=== PATIENT | female | born 1965 | race Caucasian/White ===

== ENCOUNTER → 2020-04-03 09:47 | Outpatient (BNVA) | payer MEDICAID, SELFPAY | PROVIDERS: PCP Student in an Organized Health Care Education/Training Program; Visit Provider Internal Medicine | DX: L73.2 Hidradenitis suppurativa (principal) | CPT/HCPCS: 99212 ==

== ENCOUNTER 2020-05-12 08:10 | Outpatient (REF) | payer MEDICAID, SELFPAY ==
--- NOTE | 2020-05-12 08:44 | MM_ITS ---
EXAMINATION: MM SCREENING DIGITAL BREAST TOMOSYNTHESIS, BILATERAL CLINICAL INFORMATION: Screening. Asymptomatic. Family history breast cancer, sister. The lifetime risk of breast cancer based on the Tyrer-Cuzick Model is 10%. COMPARISON: Mammography: 01/26/2019, 08/27/2017 TECHNIQUE: Digital breast tomosynthesis is performed in both the craniocaudal and mediolateral oblique views along with computer-aided detection (CAD). Synthesized 2D images are generated from the tomosynthesis. Additional left MLO view is provided. FINDINGS: There are scattered areas of fibroglandular density (ACR BI-RADS breast composition Category b). There are no significant masses, abnormal calcifications, or other abnormalities. The axilla and skin contours are unremarkable. No significant changes. MM/MM tomosynthesis screening BI IMPRESSION: No mammographic evidence of malignancy. ASSESSMENT: BI-RADS 1: Negative RECOMMENDATION: Routine annual mammography screening. This patient's information was entered into a reminder system with a target due date for their next mammogram.
== END 2020-05-12 08:11 | disposition home or self-care (01) ==
LOC: HO.MAMMO 08:10
PROVIDERS: PCP Student in an Organized Health Care Education/Training Program; Visit Provider Student in an Organized Health Care Education/Training Program
DX: Z12.31 Encounter for screening mammogram for malignant neoplasm of breast (principal); L73.2 Hidradenitis suppurativa
CPT/HCPCS: 77063; 77067

== ENCOUNTER 2020-05-16 08:37 | Day surgery (SDC) | payer MEDICAID, SELFPAY ==
[2020-05-11 11:47] VITALS: BMI 36.3
[2020-05-16 09:06] VITALS: BP 116/69; PULSE 84; RESP 16; TEMP 36.3; O2SAT 98
--- NOTE | 2020-05-16 09:19 | HO.ANESPROP2 ---
[facility] Past Medical History Medical History Anxiety Arthritis Constipation Depression Edema of both lower extremities Edema of both lower legs Elevated cholesterol Fatty liver GERD (gastroesophageal reflux disease) Hidradenitis suppurativa History of CVA (cerebrovascular accident) History of Helicobacter pylori infection HTN (hypertension) Insomnia PONV (postoperative nausea and vomiting) Family History Family history of problems with anesthesia: No Surgical History Surgical History History of cholecystectomy History of partial hysterectomy History of tubal ligation Hx of colonoscopy Previous section History of Problems with Anesthesia: Yes (PONV with gall bladder surgery) Social History Social History Alcohol intake: never Smoking Status: Never smoker Advance Directives: No Advance Directives Information Provided: No Advance Directives on File: No Meds Allergies Allergy/AdvReac Type Severity Reaction Status Date / Time No Known Allergies Allergy Verified 05/11/20 11:44 [No Known Allergies*] Home Medications Medication Instructions Recorded Confirmed Type acetaminophen [Arthritis Pain 650 mg PO Q8H PRN 05/10/20 05/12/20 History Relief (acetam)] adalimumab [Humira] 40 mg SUBCUT Q2W 05/10/20 05/12/20 History doxycycline hyclate 100 mg PO BID 05/10/20 05/12/20 History hydrochlorothiazide 25 mg PO DAILY 05/10/20 05/12/20 History methylcellulose (laxative) 500 mg PO BID 05/10/20 05/12/20 History [Citrucel] omeprazole 20 mg PO BID 05/10/20 05/12/20 History sertraline 100 mg PO DAILY 05/10/20 05/12/20 History vitamin E 800 unit PO DAILY 05/10/20 05/12/20 History atorvastatin 10 mg PO BEDTIME 05/11/20 05/12/20 History furosemide [Lasix] 20 mg PO DAILY 05/11/20 05/12/20 History atorvastatin 10 mg tablet 10 mg PO DAILY 05/12/20 05/12/20 History Exam Exam Date and Time: May 16, [id number] Height,Weight and Vital Signs: Height 4 ft 11 in Weight 81.647 kg Last Vital Signs Temp 97.4 F 05/16/20 09:06 Pulse 84 11/17/20 09:06 Resp 16 05/16/20 09:06 BP 116/69 05/16/20 09:06 Pulse Ox 98 05/16/20 09:06 Airway Mallampati Class: II TM Dist: >3cm Neck ROM: Full Partial: Upper Loose/Missing/Broken Teeth: No Heart: RRR Lungs: CTAB Assessment and Plan Assessment Anesthesia Assessment: Anesthesia Plan Discussed and Chart Reviewed Final Anesthetic Review NPO: Yes ASA Class: III Final Preanesthetic Review: No Changes in Pt Med Stat, Meds/Allgs Chart Reviewed, Consent Obtained/Reviewed and Anes Risks/Benef Reviewed Patient Risk: Intermediate Procedure Risk: Low Anesthetic Plan Anesthetic Plan: MAC: Disposition: Standard PACU
[2020-05-16] MEDS: Lactated Ringers 1,000 ML 100 ML IVCONT (09:23)
--- NOTE | 2020-05-16 10:20 | MHC.SHP ---
Pre-Procedural Eval Section B Chief Complaint: Family Hx of Colon Cancer Details of Present Illness: Colon cancer screening, Father had colon cancer only change to Hx started on Atorvastatin Relevant Family History (Specify if Yes): Yes Relevant Social History: None Present Medications: see Short Stay Collaborative assessment Medical History: Significant History (Hx TA, Hepatic Steatosis, GERD) History of Previous Operations: Relevant previous surgery/procedure and date(s) (2014--[facility]; cholecystectomy, C section x 3, partial hysterectomy) Allergies: Allergies Allergy/AdvReac Type Severity Reaction Status Date / Time No Known Allergies Allergy Verified 05/11/20 11:44 [No Known Allergies*] Review of Systems Sugical H&P ROS: Negative: Constitution, Cardiovascular, Respiratory and Gastrointestinal Exam Surgical H&P Exam: Normal: HEENT, Normal: Heart, Normal: Lungs, Normal: Extremities and Normal: Abdomen Plan Diagnosis/Plan: Unchanged Patient has been examined and remains a candidate for the planned procedure YES
[2020-05-16 11:08] VITALS: BP 100/68; PULSE 77; RESP 14; TEMP 36.8; O2SAT 96
[2020-05-16 11:22] VITALS: BP 125/83; PULSE 76; RESP 16; TEMP 36.8; O2SAT 99
--- NOTE | 2020-05-16 11:33 | HO.POSTANES ---
Post Anesthesia Evaluation Post Anesthesia Evaluation Vital Signs: Vital Signs Temp Pulse Resp BP Pulse Ox 05/16/20 11:22 98.3 F 76 16 125/83 99 05/16/20 11:08 98.3 F 77 14 100/68 96 05/16/20 09:06 97.4 F 84 16 116/69 98 Anesthesia: Monitored Mental Status: Awake Pain Control: Satisfactory Hydration: Adequate Anesthesia-Related Issues: No Anes. Related Issues
--- NOTE | 2020-05-16 11:35 | OP_ITS ---
SURGEON: Eve Erazo MD PREOPERATIVE DIAGNOSIS: Colon cancer screening. Father with history of colon cancer. POSTOPERATIVE DIAGNOSIS: Diverticulosis. PROCEDURE PERFORMED: Colonoscopy. ESTIMATED BLOOD LOSS: No blood loss. COMPLICATIONS: No complications. ANESTHESIA: Monitored. ANESTHESIOLOGIST: Evelyn Hope CRNA ASSISTANTS: No assistant accounting manager. SPECIMENS: No specimens. CORROSION TECHNICIAN: Dr. Erazo. CONDITION: Postop, stable. FINDINGS: Digital rectal exam revealed no specific lesion. Video colonoscope was introduced without difficulty. It was navigated into the rectosigmoid area. There were scattered diverticula in this region. Scope advanced through descending, transverse colon, hepatic flexure. There was mild redundancy and floppiness with readjusting the scope. I was able to move forward through ascending colon and into the cecum. Appendiceal orifice was seen. Ileocecal valve was well seen. No mucosal abnormalities were appreciated. Prep was excellent. Diverticula were present also on the right side. Slow rotational views on withdrawing the scope. No additional lesions were seen. Anorectal verge was clear. CURRENT RECOMMENDATIONS: Repeat asymptomatic screening in this patient will continue at 5 years due to the family history. GRAFT OR IMPLANTS: No grafts or implants. Eve Erazo MD MEN/MODL / [id number] MTDD
== END 2020-05-16 12:15 | disposition home or self-care (01) ==
PROVIDERS: PCP Student in an Organized Health Care Education/Training Program; Visit Provider Internal Medicine Gastroenterology
PROC: 0DJD8ZZ Inspection of Lower Intestinal Tract, Via Natural or Artificial Opening Endoscopic (ICD-10-PCS; CPT 45378; principal; 2020-05-16 10:10)
DX: Z12.11 Encounter for screening for malignant neoplasm of colon (principal); Z80.0 Family history of malignant neoplasm of digestive organs; K57.30 Diverticulosis of large intestine without perforation or abscess without bleeding; K21.9 Gastro-esophageal reflux disease without esophagitis; K76.0 Fatty (change of) liver, not elsewhere classified; I10 Essential (primary) hypertension; E78.00 Pure hypercholesterolemia, unspecified; R60.9 Edema, unspecified; Z90.49 Acquired absence of other specified parts of digestive tract; Z79.899 Other long term (current) drug therapy; Z86.73 Personal history of transient ischemic attack (TIA), and cerebral infarction without residual deficits; Z86.19 Personal history of other infectious and parasitic diseases
CPT/HCPCS: 45378

== ENCOUNTER → 2020-05-29 11:43 | Outpatient (BNVA) | payer MEDICAID, SELFPAY | PROVIDERS: PCP Student in an Organized Health Care Education/Training Program; Referring Provider Student in an Organized Health Care Education/Training Program; Visit Provider Nurse Practitioner | DX: Z76.89 Persons encountering health services in other specified circumstances (principal) ==

== ENCOUNTER 2020-06-19 11:22 | Outpatient (REF) | payer MEDICAID, SELFPAY ==
--- NOTE | 2020-06-19 11:39 | US_ITS ---
EXAMINATION: US ABDOMEN LIMITED CLINICAL INFORMATION: Nonalcoholic steatohepatitis COMPARISON: Limited abdominal ultrasound 12/31/2019. Abdominal ultrasound complete 08/11/2019 TECHNIQUE: Real-time imaging of the right upper quadrant abdominal viscera. FINDINGS: PANCREAS: Partially visualized body of the pancreas is unremarkable. LIVER: The liver is normal in size. The liver contour is normal. There is increased liver echogenicity without focal hepatic lesion. There is no intrahepatic biliary duct dilatation seen. GALLBLADDER: Surgically absent. COMMON BILE DUCT: Normal in caliber measuring 0.3 cm in diameter. RIGHT KIDNEY: Normal. No hydronephrosis. No renal calculi or focal parenchymal lesions. The kidney measures 12.0 cm in maximum dimension. FREE FLUID: None. US/US abdomen limited IMPRESSION: Mild hepatic steatosis. No focal lesion seen. Visualized pancreas, gallbladder, CBD and right kidney appears unremarkable.
[2020-06-19 13:12] LABS: Alanine Aminotransferase 30 U/L (0-31); Albumin Level 4.1 g/dL (3.5-5.0); Alkaline Phosphatase 108 U/L (39-117); Aspartate Amino Transferase 22 U/L (5-31); Bilirubin Direct < 0.2 mg/dL (0.0-0.5); Bilirubin Total 0.3 mg/dL (0.0-1.0); Total Protein 7.5 g/dL (6.5-8.0)
[2020-06-20 11:23] LABS: Alpha Fetoprotein 3.6 ng/mL
== END 2020-06-19 11:23 | disposition home or self-care (01) ==
LOC: HO.US 11:22
PROVIDERS: PCP Student in an Organized Health Care Education/Training Program; Visit Provider Nurse Practitioner
DX: K75.81 Nonalcoholic steatohepatitis (NASH) (principal)
CPT/HCPCS: 76705; 80076; 82105

== ENCOUNTER → 2020-08-23 14:31 | Outpatient (BNVA) | payer MEDICAID, SELFPAY | PROVIDERS: PCP Student in an Organized Health Care Education/Training Program; Visit Provider Nurse Practitioner ==

== ENCOUNTER → 2021-02-08 13:46 | Outpatient (BNVA) | payer MEDICAID, SELFPAY | PROVIDERS: PCP Student in an Organized Health Care Education/Training Program; Visit Provider Nurse Practitioner ==

== ENCOUNTER 2021-04-17 16:46 | Outpatient (REF) | payer MEDICAID, SELFPAY ==
--- NOTE | ~2021-04-17 | XR_ITS ---
EXAMINATION: XR CHEST CLINICAL INFORMATION: Cough and wheezing COMPARISON: Previous chest x-ray January 2017 TECHNIQUE: 2 views of the chest were obtained. FINDINGS: No significant abnormality is noted involving the heart, lungs, mediastinum, bony thorax or soft tissues. XR/XR chest 2V IMPRESSION: Unremarkable examination.
== END 2021-04-17 16:47 | disposition home or self-care (01) ==
LOC: HO.XRAY 16:46
PROVIDERS: Absent Provider Student in an Organized Health Care Education/Training Program; PCP Student in an Organized Health Care Education/Training Program; Visit Provider Emergency Medicine
DX: J40 Bronchitis, not specified as acute or chronic (principal); R05.9 Cough, unspecified
CPT/HCPCS: 71046

== ENCOUNTER 2021-05-25 08:40 | Outpatient (REF) | payer MEDICAID, SELFPAY ==
--- NOTE | ~2021-05-25 | MM_ITS ---
EXAMINATION: MM SCREENING DIGITAL BREAST TOMOSYNTHESIS, BILATERAL CLINICAL INFORMATION: Screening. Asymptomatic. The lifetime risk of breast cancer based on the Tyrer-Cuzick Model is 10%. COMPARISON: Mammography: 05/12/2020, 01/26/2019, 08/27/2017 TECHNIQUE: Digital breast tomosynthesis is performed in both the craniocaudal and mediolateral oblique views along with computer-aided detection (CAD). Synthesized 2D images are generated from the tomosynthesis. Additional exaggerated right CC view is provided. FINDINGS: There are scattered areas of fibroglandular density (ACR BI-RADS breast composition Category b). There are no significant masses, abnormal calcifications, or other abnormalities. Parenchymal pattern is similar to prior exams. No developing density. No significant changes. MM/MM tomosynthesis screening BI IMPRESSION: No mammographic evidence of malignancy. ASSESSMENT: BI-RADS 1: Negative RECOMMENDATION: Routine annual mammography screening. This patient's information was entered into a reminder system with a target due date for their next mammogram.
== END 2021-05-25 08:41 | disposition home or self-care (01) ==
LOC: HO.MAMMO 08:40
PROVIDERS: Visit Provider Student in an Organized Health Care Education/Training Program
DX: Z12.31 Encounter for screening mammogram for malignant neoplasm of breast (principal)
CPT/HCPCS: 77063; 77067